=== PATIENT | female | born 2000 | race Caucasian/White ===

== ENCOUNTER 2021-01-22 14:52 | Outpatient (CLI) | payer BC | END 2021-01-22 14:53 | disposition home or self-care (01) | LOC: SCSMRI 14:52 | PROVIDERS: ATTEND Podiatrist Foot & Ankle Surgery | DX: M76.822 Posterior tibial tendinitis, left leg (principal); S86.112A Strain of other muscle(s) and tendon(s) of posterior muscle group at lower leg level, left leg, initial encounter; R60.0 Localized edema ==